=== PATIENT | male | born 2000 | race Hispanic/Latino ===

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

== ENCOUNTER 2023-03-17 16:06 | Emergency (ER) | payer OTHER, SELFPAY ==
[2023-03-17 16:12] VITALS: BP 136/78; PULSE 78; RESP 20; TEMP 36.3; O2SAT 98
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
== END 2023-03-17 16:42 | disposition home or self-care (01) ==
PROVIDERS: Emergency Provider Registered Nurse; PCP Physician Assistant
DX: H60.92 Unspecified otitis externa, left ear (principal); H93.13 Tinnitus, bilateral; H91.93 Unspecified hearing loss, bilateral
CPT/HCPCS: 99213; G0463